=== PATIENT | female | born 1945 | race Caucasian/White ===

== ENCOUNTER → 2020-03-15 10:26 | Outpatient (CLI) | payer MEDICARE, SELFPAY ==
--- NOTE | 2020-03-15 | DI.MG.S_ITS ---
BILATERAL DIGITAL SCREENING MAMMOGRAM 3D/2D WITH CAD: 03/15/2020 CLINICAL: Routine screening. Comparison is made to exams dated: 08/27/2016 mammogram, 01/04/2014 mammogram, and 12/31/2011 mammogram - [facility]. The tissue of both breasts is predominantly fatty. Current study was also evaluated with a Computer Aided Detection (CAD) system. No significant masses, calcifications, or other findings are seen in either breast. There has been no significant interval change. IMPRESSION: NEGATIVE There is no mammographic evidence of malignancy. A 1 year screening mammogram is recommended. This exam was interpreted at Station ID: [id number]. NOTE: For mammograms, a report in lay terms will be sent to the patient. Approximately 15% of breast malignancies will not be visualized mammographically. In the management of a palpable breast mass, a negative mammogram must not discourage biopsy of a clinically suspicious lesion. Electronically Signed By: David marley/shyla:03/22/2020 07:36:38 letter sent: Normal Exam ACR BI-RADS Category 1: Negative [id number]
== END ==
PROVIDERS: PCP Nurse Practitioner Family; Referring Provider Nurse Practitioner Family; Visit Provider Nurse Practitioner Family
DX: Z12.31 Encounter for screening mammogram for malignant neoplasm of breast (principal)
CPT/HCPCS: 77063; 77067

== ENCOUNTER 2022-09-19 11:09 | Emergency (ER) | payer MEDICARE, SELFPAY ==
[2022-09-19] VITALS (12 sets, daily range): BP systolic 117–153; BP diastolic 58–72; PULSE 58–95; RESP 18–33; TEMP 37; O2SAT 93–100; BMI 22.8
--- NOTE | 2022-09-19 11:18 | DI.RAD.S_ITS ---
PROCEDURE: XR CHEST 1V INDICATIONS: chest pain TECHNIQUE: One view of the chest was acquired. COMPARISON: None. FINDINGS: Surgical changes and devices: None. Lungs and pleura: Lungs are clear. No pleural effusions or pneumothorax. Mediastinum: Mediastinal contours appear normal. Heart size is normal. Bones and chest wall: No suspicious bony lesions. Overlying soft tissues appear unremarkable. IMPRESSION: No acute cardiopulmonary abnormality. Dictated by: David Davis M.D. on 09/19/2022 at 12:57 Approved by: David Davis M.D. on 09/19/2022 at 12:58
[2022-09-19] MEDS: ASPIRIN 81 MG CHEW TAB 324 MG PO (11:30)
[2022-09-19 12:00] LABS: Add Manual Diff / Slide Review NO; Basophils Absolute Auto 0 /uL (0-100); Eosinophils Absolute Auto 100 /uL (0-450); Eosinophils Percent Auto 2.5 % (2-4); Hematocrit 41.7 % (36-46); Hemoglobin 13.9 g/dL (12.0-16.0); Lymphocytes Absolute Auto 1000 /uL (1100-4500); Lymphocytes Percent Auto 24.7 % (25-40); Mean Corpuscular HGB Conc 33.4 % (30-36); Mean Corpuscular Hemoglobin 30.1 PG (26-34); Mean Corpuscular Volume 90.1 fL (80-100); Monocytes Absolute Auto 400 /uL (0-900); Monocytes Percent Auto 10.1 % (3-14); Neutrophils Absolute Auto 2600 /uL (1500-7000); Neutrophils Percent Auto 61.7 % (50-75); Platelet Count 222 X10^3/uL (150-400); Red Blood Cell Count 4.63 X10^6/uL (4.0-5.2); Red Cell Distribution Width 14.3 % (11.6-14.8); White Blood Cell Count 4.2 X10^3/uL (4.5-11.0)
[2022-09-19 12:11] LABS: Prothrombin Time 10.9 SECONDS (10.1-12.7)
[2022-09-19 12:14] LABS: PTT Partial Thromboplastin Tim 33 SECONDS (26-36)
--- NOTE | 2022-09-19 12:14 | PC.NURSE ---
Pt very active in her room all morning, folding clothing and rearranging her belongings. Walks to restroom with steady gait. Oriented to self. Pt routinely talks to herself. Advises this RN that she has a room mate in the treatment room with her.
[2022-09-19 12:18] LABS: Alanine Aminotransferase 21 IU/L (<35); Albumin 4.4 g/dL (3.5-5.0); Albumin Globulin Ratio 1.4 (1.0-2.8); Alkaline Phosphatase 103 U/L (38-126); Aspartate Aminotransferase 32 IU/L (14-36); BUN Creatinine Ratio 28.3 (6-22); Bilirubin Total 0.4 mg/dL (0.2-1.3); Blood Urea Nitrogen 15 mg/dL (7-17); Calcium 9.2 mg/dL (8.4-10.2); Carbon Dioxide 30 mmol/L (22-32); Chloride 104 mmol/L (98-107); Creatine Kinase 62 U/L (30-135); Estimated Glomerular Filt Rate > 60 mL/min (>60); Globulin 3.2 g/dL (1.7-4.1); Glucose 115 mg/dL (80-110); HEMOLYSIS < 15 (0-50); Lipase 102 U/L (23-300); Magnesium 2.2 mg/dL (1.6-2.3); Potassium 3.6 mmol/L (3.4-5.1); Sodium 140 mmol/L (137-145); Total Protein 7.6 g/dL (6.3-8.2)
[2022-09-19 12:31] LABS: Troponin I < 0.012 ng/mL (0.01-0.034)
--- NOTE | 2022-09-19 14:10 | ED.CHESTPAIN ---
HPI - Chest Pain General Chief Complaint: Chest Pain Stated Complaint: Sent EMT fuad Tatum for heart/EKG Time Seen by Provider: 09/19/22 14:10 Source: patient Mode of arrival: Ambulatory Limitations: no limitations History of Present Illness HPI narrative: This is a 77-year-old on no daily medications, patient was told to present by [facility] for possible chest pain. Patient states for the past 2 days she is had right arm pain radiating down words particularly when she lays flat. Happen both nights she got up at 3:30 a.m. she states it gets better when she is upright. It gets worse when she lays flat. She did notice over the last week she had a little left-sided jaw discomfort she had a little bit of stiffness in her neck. She is had vertigo on and off for longstanding but felt a little different she had mild nausea, but she also still had spins. Was on Saturday or Saturday. She states usually she does some exercises where she walks and moves her eye in the lateral motion and that typically helps and was not. She states maybe some discomfort to the right side of her chest but denies substernal or left-sided chest pain. She states she did note hiking earlier this week she had to work a little bit harder. She does not appreciate any shortness of breath with rest, she is never had any chest pressure, no fevers or chills, no cold cough or congestion. No issues with bowel movements, urination. No swelling in extremities. She states last year she had an episode that she describes as weird where she had a brief period where her legs felt 3 times or size in her heart rate felt really fast. She followed up with Dr. Slaughter in her primary care and had a monitor/Holter monitor. She states known medical issues she does not take any daily medications. No prior surgeries. No known drug allergies. 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 Mom and dad both of cancer but both had cardiac issues. She states she has maybe 1 brother with takes medication but no known cardiac disease. She states 3 or 4 grandparents from cardiac issues. Related Data Previous Rx's Medication Instructions Recorded sodium sul 1.479 gram-potas ch See Rx Instructions PO PER PKG DIR 09/13/22 0.188 gram-magnes sul 0.225 gram #24 tabs tablet (Sutab) Allergies Allergy/AdvReac Type Severity Reaction Status Date / Time No Known Drug Allergies Allergy Verified 09/19/22 11:12 Review of Systems Review of Systems ROS Unobtainable: All systems reviewed & are unremarkable except as noted in HPI and below Patient History Social History Smoking Status: Never smoker Smoking Status: Never smoker Substance Use Type: other Exam Narrative Exam Narrative: GENERAL: Alert and oriented x three, well-nourished female in mild distress. HEENT: Head normocephalic, atraumatic, EOMI, pupils reactive, face symmetric, moist mucous membranes NECK: Supple, full range of motion, negative Spurling's. CARDIOVASCULAR: Regular rate and rhythm without murmurs, rubs or gallops. No JVD. No swelling bilateral lower extremities. RESPIRATORY: Breath sounds equal bilaterally, no wheezes rales or rhonchi. ABDOMEN: Soft, nontender. Normoactive bowel sounds all 4 quadrants. No guarding or rebound, rigidity, no mass : No CVA tenderness EXTREMITIES: Normal range of motion, no clubbing or edema. Neurovascularly intact NEUROLOGICAL: Cranial nerves II through XII grossly intact. Moving all extremities SKIN: Warm, dry, no petechiae, no rashes or lesions. Initial Vital Signs Initial Vital Signs: Vital Signs Temperature 98.6 F 09/19/22 11:12 Pulse Rate 69 09/19/22 11:12 Respiratory Rate 18 09/19/22 11:12 Blood Pressure 153/70 H 09/19/22 11:12 Pulse Oximetry 98 09/19/22 11:12 Oxygen Delivery Method Room Air 09/19/22 11:12 Scores HEART Score Heart Score history: Slightly Suspicious Heart Score EKG: Normal Heart Score Age: > or = 65 years old Heart Score risk factors: 1-2 risk factors Heart Score troponin: < or = to normal limit Heart Score Total: 3 Course Orders Ordered: ED Orders 09/19/22 11:18 XR chest 1V Stat EKG-12 Lead Stat 09/19/22 11:45 Complete Blood Count AUTO DIFF Stat Comprehensive Metabolic Panel Stat Lipase Stat Magnesium Stat PTT Partial Thromboplastin Eliel Stat Prothrombin Time INR Stat Troponin & CK Cardiac Panel Stat 09/19/22 14:20 Trop I [Troponin I] Stat 09/19/22 14:35 EKG-12 Lead Stat Discontinued Medications Aspirin (Aspirin 81 Mg Chew Tab) 324 mg PO NOW ONE Stop: 09/19/22 11:19 Last Admin: 09/19/22 11:30 Dose: 324 mg Documented By: LAYLA Vital Signs Vital signs: Vital Signs - 8 hr 09/19/22 11:12 09/19/22 11:48 09/19/22 11:51 Temperature 98.6 F Pulse Rate 69 95 H 65 Respiratory Rate 18 20 19 Blood Pressure 153/70 H Pulse Oximetry 98 98 Oxygen Delivery Method Room Air 09/19/22 11:51 09/19/22 12:00 09/19/22 12:00 Temperature Pulse Rate 61 Respiratory Rate 22 Blood Pressure 117/58 L 121/58 L Pulse Oximetry 98 Oxygen Delivery Method 09/19/22 12:30 09/19/22 12:30 09/19/22 13:00 Temperature Pulse Rate 58 L Respiratory Rate 24 Blood Pressure 125/64 118/61 Pulse Oximetry 99 Oxygen Delivery Method 09/19/22 13:00 09/19/22 13:30 09/19/22 13:30 Temperature Pulse Rate 58 L 64 Respiratory Rate 24 28 H Blood Pressure 130/63 Pulse Oximetry 98 98 Oxygen Delivery Method 09/19/22 14:04 09/19/22 14:05 09/19/22 14:05 Temperature Pulse Rate 64 59 L Respiratory Rate 19 Blood Pressure 137/72 Pulse Oximetry 93 98 Oxygen Delivery Method 09/19/22 14:30 09/19/22 14:31 09/19/22 14:31 Temperature Pulse Rate 59 L 62 Respiratory Rate 27 H 33 H Blood Pressure 133/62 Pulse Oximetry 99 96 Oxygen Delivery Method 09/19/22 15:00 09/19/22 15:00 Temperature Pulse Rate 60 Respiratory Rate 24 Blood Pressure 123/69 Pulse Oximetry 100 Oxygen Delivery Method MDM - Chest Pain Lab Data 09/19/22 11:45 09/19/22 11:45 Labs: Lab Results 09/19/22 09/19/22 09/19/22 Range/Units 11:45 11:45 11:45 WBC 4.2 L (4.5-11.0) X10^3/uL RBC 4.63 (4.0-5.2) X10^6/uL Hgb 13.9 (12.0-16.0) g/dL Hct 41.7 (36-46) % MCV 90.1 (80-100) fL MCH 30.1 (26-34) PG MCHC 33.4 (30-36) % RDW 14.3 (11.6-14.8) % Plt Count 222 (150-400) X10^3/uL Neut % (Auto) 61.7 (50-75) % Lymph % (Auto) 24.7 L (25-40) % [place] % (Auto) 10.1 (3-14) % Eos % (Auto) 2.5 (2-4) % Baso % (Auto) 1.0 (0-2) % Neut # (Auto) 2600 (5317-3876) /uL Lymph # (Auto) 1000 L (6966-5114) /uL [place] # (Auto) 400 (0-900) /uL Eos # (Auto) 100 (0-450) /uL Baso # (Auto) 0 (0-100) /uL PT 10.9 (10.1-12.7) SECONDS INR 1.0 (0.9-1.3) APTT 33 (26-36) SECONDS Sodium 140 (137-145) mmol/L Potassium 3.6 (3.4-5.1) mmol/L Chloride 104 (98-107) mmol/L Carbon Dioxide 30 (22-32) mmol/L BUN 15 (7-17) mg/dL Creatinine 0.53 (0.52-1.04) mg/dL Estimated GFR > 60 (>60) mL/min BUN/Creatinine Ratio 28.3 H (6-22) Glucose 115 H (80-110) mg/dL Calcium 9.2 (8.4-10.2) mg/dL Magnesium 2.2 (1.6-2.3) mg/dL Total Bilirubin 0.4 (0.2-1.3) mg/dL AST 32 (14-36) IU/L ALT 21 (<35) IU/L Alkaline Phosphatase 103 (38-126) U/L Total Creatine Kinase 62 (30-135) U/L CK-MB (CK-2) TNP CK-MB (CK-2) Rel Index TNP Troponin I < 0.012 (0.01-0.034) ng/mL Total Protein 7.6 (6.3-8.2) g/dL Albumin 4.4 (3.5-5.0) g/dL Globulin 3.2 (1.7-4.1) g/dL Albumin/Globulin Ratio 1.4 (1.0-2.8) Lipase 102 (23-300) U/L 09/19/22 Range/Units 14:20 WBC (4.5-11.0) X10^3/uL RBC (4.0-5.2) X10^6/uL Hgb (12.0-16.0) g/dL Hct (36-46) % MCV (80-100) fL MCH (26-34) PG MCHC (30-36) % RDW (11.6-14.8) % Plt Count (150-400) X10^3/uL Neut % (Auto) (50-75) % Lymph % (Auto) (25-40) % [place] % (Auto) (3-14) % Eos % (Auto) (2-4) % Baso % (Auto) (0-2) % Neut # (Auto) (2728-9439) /uL Lymph # (Auto) (0714-3361) /uL [place] # (Auto) (0-900) /uL Eos # (Auto) (0-450) /uL Baso # (Auto) (0-100) /uL PT (10.1-12.7) SECONDS INR (0.9-1.3) APTT (26-36) SECONDS Sodium (137-145) mmol/L Potassium (3.4-5.1) mmol/L Chloride (98-107) mmol/L Carbon Dioxide (22-32) mmol/L BUN (7-17) mg/dL Creatinine (0.52-1.04) mg/dL Estimated GFR (>60) mL/min BUN/Creatinine Ratio (6-22) Glucose (80-110) mg/dL Calcium (8.4-10.2) mg/dL Magnesium (1.6-2.3) mg/dL Total Bilirubin (0.2-1.3) mg/dL AST (14-36) IU/L ALT (<35) IU/L Alkaline Phosphatase (38-126) U/L Total Creatine Kinase (30-135) U/L CK-MB (CK-2) CK-MB (CK-2) Rel Index Troponin I < 0.012 (0.01-0.034) ng/mL Total Protein (6.3-8.2) g/dL Albumin (3.5-5.0) g/dL Globulin (1.7-4.1) g/dL Albumin/Globulin Ratio (1.0-2.8) Lipase (23-300) U/L Urine Dip Bedside Urine Glucose Negative Bedside Urine Bilirubin - Negative Bedside Urine Ketone - Negative Urine Specific [place] 1.010 Bedside Urine Occult Blood - Negative Bedside Urine pH 6.0 Bedside Urine Protein - Negative Bedside Urine Urobilinogen - Negative Bedside Urine Nitrite - Negative Bedside Urine Leukocytes - Negative Esterase Imaging Data Chest x-ray: Radiologist's Impression: Close Chest X-Ray (Signed) Call,David - 09/19/22 Mammogram Screening (Signed) Call,David - 03/15/20 Launch?[address] [address] XRay Report Signed Patient: Corrina Fleming MR#: [id number] : 1945 Acct:[id number] Age/Sex: 77 / F Date of Service: 09/19/22 Loc: ED Accession Number: [id number] ?? Procedure: XR chest 1V Ordering Provider: Sheyla Sam D.O. PROCEDURE:? XR CHEST 1V ? INDICATIONS:? chest pain ? TECHNIQUE:? One view of the chest was acquired.? ? COMPARISON:? None. ? FINDINGS:? ? Surgical changes and devices:? None.? ? Lungs and pleura:? Lungs are clear.? No pleural effusions or pneumothorax.? ? Mediastinum:? Mediastinal contours appear normal.? Heart size is normal.? ? Bones and chest wall:? No suspicious bony lesions.? Overlying soft tissues appear unremarkable.? ? IMPRESSION:? No acute cardiopulmonary abnormality. ? ? ? Dictated by: David Davis M.D. on 09/19/2022 at 12:57 ? ? Approved by: David Davis M.D. on 09/19/2022 at 12:58?? ECG Data Attestation: I personally reviewed and interpreted this ECG as follows: Prior ECG tracings: not available for review Interpretation: Sinus rhythm rate of 64 MN 174 QRS is [address] No acute [address] elevation depression. Left ventricular fascicular block. Q-waves in V1 V2. No priors for comparison. EKG 2. Sinus bradycardia, left axis deviation, left anterior fascicular block. Rate of 58, MN 182, QRS is 76 QTC 455. No acute or dynamic changes. MDM Narrative Medical decision making narrative: This is a 77-year-old female who presents with complaint of right arm pain that is worse when she lays flat and resolves when she sits up. She did notice some left-sided jaw pain and some vertigo symptoms which he is had before. Patient states she is not having those currently. She has some family history but no other known cardiac risk factors, her heart score is 3 based on age, family history she has possible left anterior fascicular block but no other acute changes on EKG and her symptoms resolved when she sat upright here in the department. Spurling's test was negative, I am work shows a white count of 4.2 but normal hemoglobin, platelets, normal electrolytes, negative troponin x2 with no dynamic changes on EKG and a negative chest x-ray. Discussed with patient women are more likely to have atypical symptoms, the fact that her symptoms resolve when she sits up makes me think less likely to be a cardiac source. She is had a Holter monitor in the past but not had stress testing. She does live on [place] which is a bit more difficult in terms of excess ability. Discussed risks versus benefits chest pain opposite was offered. Patient defers we discussed my suspicion is on the and for cardiac cause but not in possible and I would recommend that she follow-up and discuss stress testing with her physician. Also recommend low threshold for return. Patient expressed understanding. Discharge Plan Departure Patient Disposition: Home Clinical Impression: Arm pain, right Instructions: DI for Atypical Chest Pain Activity Restrictions/Additional Instructions: Please follow-up with your physician for recheck. Your workup today is overall reassuring but I would recommend talking with your physician about whether stress testing is appropriate. The positional nature of your symptoms might also warrant more of a musculoskeletal or nerve workup. You can take Tylenol up to a 1000 mg every 8 hours as needed for pain. Please return for new or worsening symptoms, changing symptoms, lightheadedness or passing out, new chest pain or pressure, shortness of breath, sweatiness or diaphoresis, new jaw, neck back or abdominal pain, persistent vomiting or new swelling in your extremities. Prescriptions: No Action Sutab 1.479-0.188- 0.225 gram tablet See Rx Instructions PO PER PKG DIR Qty: 24 0RF Rx Instructions: take as directed by Physician Referrals: Funmilayo Lozada MD [Primary Care Provider] - Stand Alone Forms: Patient Portal/API, Against Medical Advice
[2022-09-19 14:56] LABS: Troponin I < 0.012 ng/mL (0.01-0.034)
== END 2022-09-19 15:20 | disposition home or self-care (01) ==
PROVIDERS: Emergency Provider Emergency Medicine; PCP Family Medicine
DX: M79.601 Pain in right arm (principal); R07.89 Other chest pain
CPT/HCPCS: 36415; 71045; 80053; 81003; 82550; 83690; 83735; 84484; 85025; 85610; 85730; 93005; 93010; 99284

== ENCOUNTER 2022-10-18 09:17 | Day surgery (SDC) | payer MEDICARE, SELFPAY ==
[2022-10-18] VITALS (7 sets, daily range): BP systolic 86–115; BP diastolic 51–69; PULSE 55–63; RESP 14–22; TEMP 36.2–36.6; O2SAT 96–100; BMI 22.6
[2022-10-18] MEDS: LACTATED RINGERS 1,000 ML 100 ML IV (09:45)
--- NOTE | 2022-10-18 10:07 | PM.HP.1 ---
History of Present Illness History of Present Illness Date Patient Seen: 10/18/22 Time Patient Seen: 10:07 Chief complaint: SDC Narrative: Ilene is a 77-year-old woman who is here for colonoscopy. She believes her last 1 was approximately 7 years ago and no polyps were removed. She has had polyps removed on prior colonoscopies. Her father had colon cancer diagnosed early 60s PFSH Medical History (Updated 10/18/22 @ 10:08 by Gucci Gastelum MD) Colonoscopy planned Surgical History (Updated 10/18/22 @ 09:29 by Wilson Pablo RN) H/O foot surgery History of tonsillectomy Social History Smoking Status: Never smoker alcohol intake: never Meds Home Medications and Allergies Allergies Allergy/AdvReac Type Severity Reaction Status Date / Time No Known Drug Allergies Allergy Verified 09/19/22 11:12 Exam Vital Signs (past 8 hours): - 10/18/22 09:31 Temperature 97.4 F L Pulse Rate 62 Respiratory Rate 16 Blood Pressure 112/67 Pulse Oximetry 97 Const General: healthy appearing Assessment & Plan Assessment and plan (1) Colon cancer screening: Status: Acute Plan We reviewed the risks and benefits colonoscopy for colon cancer screening and a family history of colon cancer and she would like to proceed.
--- NOTE | 2022-10-18 11:20 | P.OP.COLON_ITS ---
Operative Date/Time/Diagnoses Date of procedure: 10/18/22 Time of procedure: 11:20 Pre-op diagnosis: Personal history of polyps and family history of colon cancer Post-op diagnosis: same Procedure & Clinicians Study performed: Colonoscopy Same procedure as scheduled: Yes Surgeon: Gucci Gastelum Procedure Notes Procedure in detail: Surgeon: Gucci Gastelum MD Anesthesia: Earl Brown TILE GRADER Procedure: The patient was brought to the endoscopy suite, placed in left lateral decubitus position. The patient was connected to monitoring devices. A time-out was performed. Sedation was administered. Once the patient was adequately sedated, a digital rectal exam was performed and was normal. The scope was then inserted and advanced to the cecum where the appendiceal orifice was identified and photographed. The scope was then slowly withdrawn over greater than 6 minutes. The mucosa was thoroughly inspected. No abnormalities were found. The scope was retroflexed in the rectum. No abnormalities were seen. The scope was straightened and removed. The patient was awakened and brought to recovery. Scope withdrawal time: 14 minutes Sedation time: 23 minutes EBL: 0 Findings: Normal colon Post-procedure Disposition: PACU
== END 2022-10-18 12:18 | disposition home or self-care (01) ==
PROVIDERS: PCP Family Medicine; Referring Provider Surgery; Visit Provider Surgery
PROC: 0DJD8ZZ Inspection of Lower Intestinal Tract, Via Natural or Artificial Opening Endoscopic (ICD-10-PCS; CPT 45378; principal; 2022-10-18 10:30)
DX: Z12.11 Encounter for screening for malignant neoplasm of colon (principal); Z86.010 Personal history of colon polyps; Z80.0 Family history of malignant neoplasm of digestive organs
CPT/HCPCS: 45378; J2704

== ENCOUNTER → 2024-09-11 09:45 | Outpatient (CLI) | payer MEDICARE, SELFPAY ==
--- NOTE | 2024-09-11 09:48 | DI.RAD.S_ITS ---
PROCEDURE: XR DEXA AXIAL SKELETON INDICATIONS: ASSESS BONE DENSITY COMPARISON: None. FINDINGS: Lumbar Spine: Bone mineral density 1.016 g/cm2, T score -0.3. Left Femoral Neck: Bone mineral density 0.494 g/cm2, T score -3.2. Left Hip: Bone mineral density 0.605 g/cm2, T score -2.8. Fracture Risk Calculation (when applicable): 10-year fracture risk of a major osteoporotic fracture 23 percent and of a hip fracture 9.7 percent. (T score greater or equal to -1.0 to: NORMAL) (T score from -1.1 to -2.4: OSTEOPENIA) (T score less than or equal to -2.5: OSTEOPOROSIS) IMPRESSION: Osteoporosis. Follow-up guidelines as follows: Osteoporosis: Consider a repeat DEXA and Vertebral Fracture Assessment (VFA) exam in 2 years or sooner if medically necessary, to reassess this patient's status. Osteopenia: Consider a repeat DEXA in 2-3 years to reassess this patient's status, or if there is a new clinical indication. Normal: Consider a repeat DEXA in 5 years or sooner, or if there is a new clinical indication. All treatment decisions require clinical judgment and consideration of individual patient factors, including patient preferences, comorbidities, previous drug use, risk factors not captured in the FRAX model (e.g., frailty, falls, vitamin D deficiency, increased bone turnover, interval significant decline in bone density ) and possible under- or over-estimation of fracture risk by FRAX. In addition, the NOF Guide recommends that FDA-approved medical therapies be considered in postmenopausal women and men age >= 50 years with a: * Hip or vertebral (clinical or morphometric) fracture * T-score of <=-2.5 at the spine or hip * Ten-year fracture probability by FRAX of >= 3% for hip fracture or >=20% for major osteoporotic fracture. Dictated by: Vladimir Al M.D. on 09/11/2024 at 17:11 Approved by: Vladimir Al M.D. on 09/11/2024 at 17:12
== END ==
LOC: RAD 09:46
PROVIDERS: PCP Physician Assistant; Referring Provider Physician Assistant; Visit Provider Physician Assistant
DX: M81.0 Age-related osteoporosis without current pathological fracture (principal)
CPT/HCPCS: 77080